=== PATIENT | male | born 1950 | race American Indian/Alaskan Native ===

== ENCOUNTER 2017-10-14 20:24 | Observation (INO) | payer MEDICARE, OTHER ==
[2017-10-14 20:28] VITALS: BMI 23.9
[2017-10-14] MEDS ORDERED: Sodium Chloride 0.9% 1,000 ML IV SCH (21:00)
--- NOTE | 2017-10-14 21:01 | ED PDOC ---
Arrival/HPI - General Chief Complaint: Abdominal Pain Time Seen by Provider: 10/14/17 20:25 Historian: Patient - History of Present Illness Narrative History of Present Illness (Text): 10/14/17 20:55 A 67 year old male, whose past medical history includes diabetes and hypertension, brought into the emergency department by EMS complaining of abdominal discomfort for the past few days. Patient notes associated nausea, non -bilious non-bloody vomiting and diarrhea. He reports using heroin today to relieve the pain. Patient notes multiple abdominal repairs but is unsure of the type of surgeries they were. He also notes taking medications but does not know the names. Patient denies any fever, chills, chest pain, shortness of breath or any other complaints. Time/Duration: Other (few days) Symptom Course: Unchanged Quality: Other Context: Home Past Medical History - Provider Review Nursing Documentation Reviewed: Yes - Psychiatric Hx Substance Use: Yes (heroin) Family/Social History - Physician Review Nursing Documentation Reviewed: Yes Family/Social History: No Known Family HX Smoking Status: Never Smoked Hx Alcohol Use: No Hx Substance Use: Yes (heroin) Allergies/Home Meds Allergies/Adverse Reactions: Allergies No Known Allergies Allergy (Verified 10/14/17 20:28) Home Medications: Home Meds Medication Instructions Recorded Confirmed Unobtainable 10/14/17 10/14/17 Review of Systems - Physician Review All systems were reviewed & negative as marked: Yes - Review of Systems Constitutional: absent: Fevers, Night Sweats Respiratory: absent: SOB Cardiovascular: absent: Chest Pain Gastrointestinal: Abdominal Pain, Diarrhea, Nausea, Vomiting Physical Exam Vital Signs Reviewed: Yes Vital Signs Temp Pulse Resp BP Pulse Ox 10/15/17 03:23 98.1 F 67 20 140/78 10/15/17 02:00 98.5 F 83 16 159/76 H 98 10/15/17 00:00 98.5 F 69 17 165/82 H 97 10/14/17 22:24 98.6 F 78 17 150/85 99 10/14/17 20:33 98.5 F 73 18 154/84 H 98 Temperature: Afebrile Blood Pressure: Hypertensive Pulse: Regular Respiratory Rate: Normal Appearance: Positive for: Well-Appearing, Non-Toxic, Comfortable Pain Distress: None Mental Status: Positive for: Alert and Oriented X 3 - Systems Exam Head: Present: Atraumatic, Normocephalic Pupils: Present: PERRL Extroacular Muscles: Present: EOMI Conjunctiva: Present: Normal Mouth: Present: Moist Mucous Membranes Neck: Present: Normal Range of Motion Respiratory/Chest: Present: Clear to Auscultation, Good Air Exchange. No: Respiratory Distress, Accessory Muscle Use Cardiovascular: Present: Regular Rate and Rhythm, Normal S1, S2. No: Murmurs Abdomen: Present: Tenderness (Diffuse tenderness to palpation), Normal Bowel Sounds. No: Distention, Peritoneal Signs, Rebound, Guarding Back: Present: Normal Inspection Upper Extremity: Present: Normal Inspection. No: Cyanosis, Edema Lower Extremity: Present: Normal Inspection. No: Edema Neurological: Present: GCS=15, CN II-XII Intact, Speech Normal Skin: Present: Warm, Dry, Normal Color. No: Rashes Psychiatric: Present: Alert, Oriented x 3, Normal Insight, Normal Concentration Medical Decision Making ED Course and Treatment: 10/14/17 20:55 Impression: A 67 year old male with abdominal pain, nausea, vomiting and diarrhea. Plan: -- Chest xray -- EKG -- Labs -- Urinalysis -- Pepcid, IV fluids and Zofran -- Reassess and disposition Progress Notes: 10/14/17 22:34 Chest xray: No acute process, as interpreted by me. Addendum created by Spring Lutz MD on 10/15/2017 1:32 AM Eastern Time ([place] & [place]) CRITICAL RESULT: The study was personally discussed on the telephone with [Filiberto Warren] on 10/15/2017 1:31 AM EST. The results were understood and acknowledged. Initial Report created on 10/15/2017 1:09 AM Eastern Time ([place] & [place]) CT Abdomen and Pelvis With Intravenous Contrast IMPRESSION: 1. There is right lower lobe infiltrate representing atelectasis or pneumonia. 2. Contracted gallbladder with multiple gallstones with gallbladder wall thickening and pericholecystic inflammatory change. These findings can represent acute on chronic cholecystitis. Correlation with clinical data is recommended to evaluate for acute cholecystitis. 3. There is thickening of the mid to distal gastric wall. Correlation with clinical data recommended to evaluate for gastritis/duodenitis versus underdistention. Dictated and Authenticated by: Spring Lutz MD 10/15/2017 1:09 AM Eastern Time ([place] & [place]) 10/15/17 01:45 Case discussed with attending money order clerk, who defers to hospitalist service. Case discussed with medical planner and with Dr. Sun, who accepts patient to hospitalist service. 10/15/17 01:59 Case discussed with manager residential, Dr. Suzette Wilkins. - Lab Interpretations Lab Results: 10/14/17 22:10 10/14/17 22:10 Lab Results 10/14/17 23:30: Urine Opiates Screen Positive H, Urine Methadone Screen Negative , Ur Barbiturates Screen Negative, Ur Phencyclidine Scrn Negative, Ur Amphetamines Screen Negative, U Benzodiazepines Scrn Negative, U Oth Cocaine Metabols Negative, U Cannabinoids Screen Negative 10/14/17 23:30: Urine Color Yellow, Urine Appearance Clear, Urine pH >=9.0, Ur Specific [place] 1.020, Urine Protein 100 H, Urine Glucose (UA) Negative, Urine Ketones Negative, Urine Blood Trace-intact H, Urine Nitrate Negative, Urine Bilirubin Negative, Urine Urobilinogen 2.0 H, Ur Leukocyte Esterase Negative, Urine RBC 2 - 5, Urine WBC 0 - 2, Ur Epithelial Cells 0 - 2 10/14/17 22:10: Sodium 141, Potassium 3.8, Chloride 105, Carbon Dioxide 24, Anion Gap 16, BUN 21, Creatinine 1.5, Est GFR ( Amer) 57, Est GFR (Non- Af Amer) 47, Random Glucose 174 H, Calcium 9.7, Total Bilirubin 1.0, AST 99 H, ALT 64 H, Alkaline Phosphatase 183 H, Total Protein 8.3, Albumin 3.9, Globulin 4.4, Albumin/Globulin Ratio 0.9 L, Lipase 43 10/14/17 22:10: WBC 7.8, RBC 3.67, Hgb 11.7 L, Hct 33.5 L, MCV 91.3, MCH 31.9, MCHC 34.9, RDW 12.6, Plt Count 163, MPV 12.1 H 10/14/17 21:47: POC Glucose (mg/dL) 147 H I have reviewed the lab results: Yes - RAD Interpretation Radiology Orders: 10/14/17 20:49 CHEST PORTABLE [RAD] Stat 10/14/17 21:07 ABD & PELVIS IV CONTRAST ONLY [CT] Stat - Medication Orders Current Medication Orders: Heparin Sodium (Porcine) (Heparin) 5,000 units SC Q8 SAYDA PRN Reason: Protocol Last Admin: 10/15/17 05:43 Dose: 5,000 units Subcutaneous Administrations Document 10/15/17 05:43 RS (Rec: 10/15/17 05:43 RS [id number]) Charges for Administration # of Subcutaneous Administrations 1 Hydralazine HCl (Apresoline) 10 mg IVP Q6 PRN PRN Reason: Systolic Blood Pressure Dextrose/Sodium Chloride (Dextrose 5%/0.45% Ns 1000 Ml) 1,000 mls @ 100 mls/hr IV .Q10H SAYDA Last Admin: 10/15/17 04:05 Dose: 100 mls/hr eMAR Start Stop Document 10/15/17 04:05 RS (Rec: 10/15/17 04:05 RS [id number]) Intravenous Solution Start Date 10/15/17 Start Time 04:05 End Date 10/15/17 Ceftriaxone Sodium (Rocephin 1 Gram Ivpb (D5w)) 1 gm in 100 mls @ 100 mls/hr IVPB DAILY SAYDA PRN Reason: Protocol Metronidazole (Flagyl) 500 mg in 100 mls @ 100 mls/hr IVPB Q8 SAYDA PRN Reason: Protocol Insulin Human Lispro (Humalog Med) 0 units SC ACHS SAYDA PRN Reason: Protocol Nicotine (Nicoderm Cq) 1 patch TD DAILY PRN PRN Reason: URGE TO SMOKE Ondansetron HCl (Zofran Inj) 4 mg IVP Q6H PRN PRN Reason: Nausea/Vomiting Discontinued Medications Famotidine (Pepcid) 20 mg IVP STAT STA Stop: 10/14/17 20:52 Last Admin: 10/14/17 21:49 Dose: 20 mg IVP Administration Document 10/14/17 21:49 AB (Rec: 10/14/17 21:49 AB [facility] [id number] Charges for Administration # of IVP Administrations 1 Sodium Chloride (Sodium Chloride 0.9%) 1,000 mls @ 100 mls/hr IV .Q10H SAYDA Last Admin: 10/14/17 21:48 Dose: 100 mls/hr eMAR Start Stop Document 10/14/17 21:48 AB (Rec: 10/14/17 21:49 AB [facility] [id number] Intravenous Solution Start Date 10/14/17 Start Time 21:49 Metronidazole (Flagyl) 500 mg in 100 mls @ 100 mls/hr IVPB STAT STA PRN Reason: Protocol Stop: 10/15/17 02:36 Last Admin: 10/15/17 02:36 Dose: 100 mls/hr eMAR Start Stop Document 10/15/17 02:36 AB (Rec: 10/15/17 02:37 AB [facility] [place] [id number] Intravenous Solution Start Date 10/15/17 Start Time 02:37 End Date 10/15/17 End time 03:37 Total Infusion Time 60 Ceftriaxone Sodium (Rocephin 1 Gram Ivpb) 1 gm in 100 mls @ 200 mls/hr IV ONCE STA PRN Reason: Protocol Stop: 10/15/17 02:05 Last Admin: 10/15/17 02:00 Dose: 200 mls/hr eMAR Start Stop Document 10/15/17 02:00 AB (Rec: 10/15/17 02:00 AB [facility] [place] [id number] Intravenous Solution Start Date 10/15/17 Start Time 02:00 End Date 10/15/17 End time 02:30 Total Infusion Time 30 Ketorolac Tromethamine (Toradol) 30 mg IVP ONCE ONE Stop: 10/14/17 21:08 Last Admin: 10/14/17 21:48 Dose: 30 mg [facility] Pain Assessment Document 10/14/17 21:48 AB (Rec: 10/14/17 21:48 [id number] Pain Reassessment Is this a pain reassessment? Yes Sleep Is patient sleeping during reassessment? No Presence of Pain Presence of Pain Yes Pain Scale Used Pain Scale Used Numeric Location Upper or Lower Upper Pain Location Body Site Abdomen Description Description Constant Intensity of Pain at present 6 Duration since yesterday Pain Behavior Irritability Aggravating Factors ADL's Alleviating Factors/Management Medication Techniques Alleviating Factors Medication IVP Administration Document 10/14/17 21:48 AB (Rec: 10/14/17 21:48 AB [facility] [id number] Charges for Administration # of IVP Administrations 1 Re-Assess: SOO Pain Assessment Document 10/14/17 22:48 AB (Rec: 10/15/17 01:46 AB [facility] [place] [id number] Pain Reassessment Is this a pain reassessment? Yes Sleep Is patient sleeping during reassessment? No Ondansetron HCl (Zofran Inj) 4 mg IVP ONCE ONE Stop: 10/14/17 20:52 Last Admin: 10/14/17 21:48 Dose: 4 mg IVP Administration Document 10/14/17 21:48 AB (Rec: 10/14/17 21:48 AB [facility] [id number] Charges for Administration # of IVP Administrations 1 Pneumococcal Polyvalent Vaccine (Pneumovax 23 Vaccine) 0.5 ml IM .ONCE ONE Stop: 10/15/17 03:48 - Scribe Statement The provider has reviewed the documentation as recorded by the Ava Heath Provider Scribe Attestation: All medical record entries made by the Scribe were at my direction and personally dictated by me. I have reviewed the chart and agree that the record accurately reflects my personal performance of the history, physical exam, medical decision making, and the department course for this patient. I have also personally directed, reviewed, and agree with the discharge instructions and disposition. Disposition/Present on Arrival - Present on Arrival Any Indicators Present on Arrival: No History of DVT/PE: No History of Uncontrolled Diabetes: No Urinary Catheter: No History of Decub. Ulcer: No History Surgical Site Infection Following: None - Disposition Have Diagnosis and Disposition been Completed?: Yes Diagnosis: Acute cholecystitis Disposition: HOSPITALIZED Disposition Time: 01:55 Condition: GOOD
[2017-10-14 22:23] LABS: HEMOGLOBIN 11.7 g/dL (14.0-18.0); MEAN CELL VOLUME 91.3 fl (80.0-105.0); MEAN CORPUSCULAR HEMOGLOBIN 31.9 pg (25.0-35.0); MEAN CORPUSCULAR HGB CONC 34.9 g/dl (31.0-37.0); MEAN PLATELET VOLUME 12.1 fl (7.0-11.0); RBC 3.67 10^6/uL (3.5-6.1); RED CELL DISTRIBUTION WIDTH 12.6 % (11.5-14.5); WHITE BLOOD COUNT 7.8 10^3/ul (4.5-11.0)
[2017-10-14 22:34] LABS: ALB/GLOB RATIO 0.9 (1.1-1.8); ALBUMIN 3.9 g/dL (3.0-4.8); CALCIUM 9.7 mg/dL (8.4-10.5)
[2017-10-14 23:55] LABS: PH,URINE >=9.0 (4.7-8.0); URINE BILIRUBIN NEGATIVE (NEGATIVE); URINE BLOOD TRACE-INTACT (NEGATIVE); URINE GLUCOSE (UA) NEGATIVE (NEGATIVE); URINE LEUKOCYTE ESTERASE NEGATIVE Leu/uL (NEGATIVE); URINE NITRATE NEGATIVE (NEGATIVE); URINE PROTEIN 100 mg/dL (<30 mg/dL)
[2017-10-15] LABS: URINE APPEARANCE CLEAR (CLEAR); URINE COLOR YELLOW (YELLOW)
[2017-10-15 00:03] LABS: BARBITURATES, UR NEGATIVE (NEGATIVE); BENZODIAZEPINES, UR NEGATIVE (NEGATIVE); PHENCYCLIDINE, UR NEGATIVE (NEGATIVE)
[2017-10-15 00:09] LABS: OPIATES, UR POSITIVE (NEGATIVE)
[2017-10-15 00:10] LABS: URINE EPITHELIAL CELLS 0 - 2 /hpf (0-5); URINE WBC 0 - 2 /hpf (0-6)
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
[2017-10-15] MEDS ORDERED: cefTRIAXone 1 gm 1 GM/100 ML BAG IV STA (01:36)
[2017-10-15] MEDS ORDERED: metroNIDAZOLE IV 500 mg/100 ml 500 MG/100 ML BAG IVPB STA (01:37)
--- NOTE | 2017-10-15 02:26 | CP.PCM.HP ---
<Andrew Avila - Last Filed: 10/15/17 02:56> History of Present Illness - History of Present Illness History of Present Illness: CC: Vomiting Subjective: HPI: Patient is a 67 year old male with past medical history of diabetes and hypertension who presents to the emergency department for evaluation and treatment of intermittent abdominal pain which began one month ago. The pain is dull in nature and is associated with meals. States the pain was initially generalized but then localizes to the lower quadrants. Patient notes associated nausea and nonbilious vomiting. Patient denies specific provoking events. Denies recent travel and sick contacts. Admits to sniffing heroin today to relieve the pain. Patient denies intractable headache, fever, chills, dizziness, blurry vision, ringing in the ears, chest pain, shortness of breath, diarrhea, constipation, and urinary symptoms. ROS: 12 point review of systems negative except as indicated in HPI PMHx: diabetes and hypertension PSHx: none Family Hx: father- liver cirrhosis Social Hx: denies ETOH use, 2 ppd tobacco use for 10 years, admits to illicit drug use- heroin (IV but now sniffs) and cocaine Medications: Please see medication reconciliation PMD: none Pharmacy: none Physical Examination: - Constitutional Appears: Non-toxic, No Acute Distress - Head Exam Head Exam: atraumatic, normocephalic - Eye Exam Eye Exam: Normal appearance, PERRL. absent: Scleral icterus - ENT Exam ENT Exam: Mucous Membranes Moist - Neck Exam Neck exam: Normal Inspection - Respiratory Exam Respiratory Exam: Normal Breathing Pattern - Cardiovascular Exam Cardiovascular Exam: +S1, +S2. absent: Gallop, JVD - GI/Abdominal Exam GI & Abdominal Exam: Normal Bowel Sounds, mildly tender to palpation in RUQ, soft, negative murphys signs absent: Distended, Guarding, Pulsatile Mass, Rebound, Rigid - Extremities Exam Extremities exam: Negative for: calf tenderness - Neurological Exam Neurological exam: Patient is awake, alert, responds to verbal stimuli, answers questions appropriately, follows commands, and moves extremities past midline - Psychiatric Exam Psychiatric exam: Normal Affect, Normal Mood - Skin Skin Exam: warm and dry Assessment and Plan: Patient is a 67 year old male with past medical history of diabetes and hypertension who presents to the emergency department via EMS for evaluation and treatment of intermittent abdominal pain which began one month ago. Abdominal Pain; N/V - abdominal pelvis CT reviewed and appreciated- Contracted gallbladder with multiple gallstones with gallbladder wall thickening and pericholecystic inflammatory change. There is thickening of the mid to distal gastric wall. - general surgery consulted- appreciate recommendations- abdominal US ordered - NPO - c/w d5 half normal @ 100 - zofran prn nausea - c/w ceftriaxone and metronidazole - lipase ordered and pending- rule out gallstone pancreatitis Elevated LFTs - avoid hepatotoxins - monitor closely via CMP - hepatits panel pending - HIV rapid screen pending KVNG - creatinine, BUN, and GFR reviewed and appreciated- monitor closely - likely pre-renal from dehydration - c/w d5 half normal @ 100 - consider nephrology consult pending patient's clinical course Anemia - Hgb reviewed and appreciated, normocytic in nature - monitor closely via CBC - FOBT ordered - consider iron, tibc, ferritin, peripheral smear pending patients clinical course Hx of Htn - hydralazine 5mg IV q6 prn SBP > 180, holding parameters- do not administer if HR is > 100 bpm Hx of Diabetes - fingersticks ACHS - insulin sliding scale- lispro medium - NPO Polysubstance abuse/Tobacco Abuse - nicotine patch offered - smoking cessation advised - patient education provided on dangers of tobacco abuse Prophylaxis - DVT ppx- subq heparin as per mere score - GI ppx- famotidine Patient case discussed with and plan approved by attending physician. 10/15/17 02:03 Present on Admission - Present on Admission Any Indicators Present on Admission: No Past Patient History - Past Social History Smoking Status: Never Smoked - PSYCHIATRIC Hx Substance Use: Yes (heroin) Meds Allergies/Adverse Reactions: Allergies Allergy/AdvReac Type Severity Reaction Status Date / Time No Known Allergies Allergy Verified 10/14/17 20:28 Results - Vital Signs Recent Vital Signs: Last Vital Signs Temp 98.5 F 10/15/17 00:00 Pulse 69 10/15/17 00:00 Resp 17 10/15/17 00:00 BP 165/82 H 10/15/17 00:00 Pulse Ox 97 10/15/17 00:00 - Labs Result Diagrams: 10/14/17 22:10 10/14/17 22:10 Labs: Laboratory Results - last 24 hr 10/14/17 10/14/17 10/14/17 21:47 22:10 22:10 WBC 7.8 RBC 3.67 Hgb 11.7 L Hct 33.5 L MCV 91.3 MCH 31.9 MCHC 34.9 RDW 12.6 Plt Count 163 MPV 12.1 H Sodium 141 Potassium 3.8 Chloride 105 Carbon Dioxide 24 Anion Gap 16 BUN 21 Creatinine 1.5 Est GFR ( Amer) 57 Est GFR (Non-Af Amer) 47 POC Glucose (mg/dL) 147 H Random Glucose 174 H Calcium 9.7 Total Bilirubin 1.0 AST 99 H ALT 64 H Alkaline Phosphatase 183 H Total Protein 8.3 Albumin 3.9 Globulin 4.4 Albumin/Globulin Ratio 0.9 L Lipase 43 Urine Color Urine Appearance Urine pH Ur Specific [place] Urine Protein Urine Glucose (UA) Urine Ketones Urine Blood Urine Nitrate Urine Bilirubin Urine Urobilinogen Ur Leukocyte Esterase Urine RBC Urine WBC Ur Epithelial Cells Urine Opiates Screen Urine Methadone Screen Ur Barbiturates Screen Ur Phencyclidine Scrn Ur Amphetamines Screen U Benzodiazepines Scrn U Oth Cocaine Metabols U Cannabinoids Screen 10/14/17 10/14/17 23:30 23:30 WBC RBC Hgb Hct MCV MCH MCHC RDW Plt Count MPV Sodium Potassium Chloride Carbon Dioxide Anion Gap BUN Creatinine Est GFR ( Amer) Est GFR (Non-Af Amer) POC Glucose (mg/dL) Random Glucose Calcium Total Bilirubin AST ALT Alkaline Phosphatase Total Protein Albumin Globulin Albumin/Globulin Ratio Lipase Urine Color Yellow Urine Appearance Clear Urine pH >=9.0 Ur Specific [place] 1.020 Urine Protein 100 H Urine Glucose (UA) Negative Urine Ketones Negative Urine Blood Trace-intact H Urine Nitrate Negative Urine Bilirubin Negative Urine Urobilinogen 2.0 H Ur Leukocyte Esterase Negative Urine RBC 2 - 5 Urine WBC 0 - 2 Ur Epithelial Cells 0 - 2 Urine Opiates Screen Positive H Urine Methadone Screen Negative Ur Barbiturates Screen Negative Ur Phencyclidine Scrn Negative Ur Amphetamines Screen Negative U Benzodiazepines Scrn Negative U Oth Cocaine Metabols Negative U Cannabinoids Screen Negative <Woo Sun MD - Last Filed: 10/24/17 13:37> Results - Vital Signs Recent Vital Signs: Last Vital Signs Temp 99.2 F 10/16/17 06:00 Pulse 74 10/16/17 06:00 Resp 20 10/16/17 06:00 BP 149/90 10/16/17 06:00 Pulse Ox 97 10/16/17 06:00 - Labs Result Diagrams: 10/16/17 05:30 10/16/17 05:30 Attending/Attestation - Attestation I have personally seen and examined this patient.: Yes I have fully participated in the care of the patient.: Yes I have reviewed all pertinent clinical information: Yes Notes (Text): -I agree with the above H&P completed by the resident physician.
[2017-10-15] MEDS ORDERED: Sodium Chloride 0.9% 1,000 ML IV SCH (03:30)
[2017-10-15] MEDS ORDERED: Dextrose 5%/0.45% NS 1,000 ML IV SCH (03:45)
[2017-10-15 03:46] VITALS: RESP 20
[2017-10-15] MEDS ORDERED: Influenza Vaccine 60 mcg/0.5 mL SYR (4YR UP) IM ONE (03:47)
[2017-10-15] MEDS ORDERED: Pneumococcal 23-Valent Vaccine IM ONE (03:47)
[2017-10-15 06:42] LABS: ALB/GLOB RATIO 0.8 (1.1-1.8); ALBUMIN 3.7 g/dL (3.0-4.8); CALCIUM 9.4 mg/dL (8.4-10.5)
[2017-10-15 06:56] LABS: BASO # 0.01 K/mm3 (0.0-2.0); BASO % 0.1 % (0.0-3.0); GRAN # 8.77 (1.4-6.5); GRAN % 86.9 % (50.0-68.0); HEMOGLOBIN 11.4 g/dL (14.0-18.0); LYMPH % 9.5 % (22.0-35.0); MEAN CELL VOLUME 92.7 fl (80.0-105.0); MEAN CORPUSCULAR HEMOGLOBIN 30.9 pg (25.0-35.0); MEAN CORPUSCULAR HGB CONC 33.3 g/dl (31.0-37.0); MEAN PLATELET VOLUME 12.4 fl (7.0-11.0); MONO # 0.4 (0.1-0.6); MONO % 3.5 % (1.0-6.0); RBC 3.69 10^6/uL (3.5-6.1); WHITE BLOOD COUNT 10.1 10^3/ul (4.5-11.0)
--- NOTE | 2017-10-15 08:32 | RAD ---
HISTORY: abdominal pain COMPARISON: No prior. FINDINGS: LUNGS: No active pulmonary disease. PLEURA: No significant pleural effusion identified, no pneumothorax apparent. CARDIOVASCULAR: Normal. OSSEOUS STRUCTURES: No significant abnormalities. VISUALIZED UPPER ABDOMEN: Normal. OTHER FINDINGS: None. IMPRESSION: No active disease.
[2017-10-15] MEDS: Insulin Lispro (humaLOG) MEDIUM Coverage SC SCH ×4 (08:39→21:52)
[2017-10-15] MEDS: metroNIDAZOLE IV 500 mg/100 ml 500 MG/100 ML BAG IVPB SCH ×2 (09:39→21:56)
[2017-10-15] MEDS ORDERED: Alum-Mag Hydrox-Simethicone Susp (30 mL) PO ONE (11:06)
--- NOTE | 2017-10-15 11:37 | CP.PCM.CON ---
History of Present Illness - History of Present Illness History of Present Illness: General Surgery Consult Note for Dr. Masters CC: diffuse Abd Pain HPI: The patient is a 67yo AA M that presents with worsening abdominal pain localized to the midline that has been going on for 3 week and has progressively gotten worse. The patient reported that the pain is diffuse across the abdomen, radiates to the back bilaterally and the b/l lower quadrants. The pt reports that the pain gets worse prior to eating meals and it is associated with nausea and non-bloody, and non-bilious vomiting. The pt also complains that the pain worsened two weeks ago after doing "dope". In addition, there is of diarrhea that has been occurring in the past week, reports blood with every bowel movement since arriving to the hospital. The pt did not take any medications for the pain, but has a history of opiate abuse, and insuffulate 1-2 bags of heroin. The patient currently denies chest pain, dyspnea , f/c, headache, back pain, edema, leg pain, constipation. PMH:DM, HTN PSH: denies Meds: insulin dose and brand unknown Allergies: NKDA Fam: reviewed and non-contributory Social: .25ppd x50 years, denies etoh, 1-2bags of heroin daily. Review of Systems - Review of Systems All systems: reviewed and no additional remarkable complaints except - Constitutional Constitutional: As Per HPI. absent: Chills, Fever, Weight Gain, Weight Loss - Cardiovascular Cardiovascular: absent: Chest Pain, Chest Pain at Rest, Dyspnea, Edema - Respiratory Respiratory: absent: Cough, Dyspnea on Exertion, Wheezing, Pain on Inspiration - Gastrointestinal Gastrointestinal: Abdominal Pain, Change in Bowel Habits, Change in Stool Character, Diarrhea, Loose Stools. absent: Bloating, Constipation, Cramping - Genitourinary Genitourinary: Flank Pain. absent: Difficulty Urinating, Dysuria - Musculoskeletal Musculoskeletal: Back Pain Past Patient History - Past Social History Smoking Status: Never Smoked - CARDIAC Hx Hypertension: Yes - ENDOCRINE/METABOLIC Hx Diabetes Mellitus Type 2: Yes - MUSCULOSKELETAL/RHEUMATOLOGICAL Hx Falls: No Hx Unsteady Gait: Yes (cane) - PSYCHIATRIC Hx Substance Use: Yes (heroin) - SURGICAL HISTORY Hx Surgeries: Yes (MULTIPLE GI) Meds Allergies/Adverse Reactions: Allergies Allergy/AdvReac Type Severity Reaction Status Date / Time No Known Allergies Allergy Verified 10/14/17 20:28 - Medications Medications: Current Medications Heparin Sodium (Porcine) (Heparin) 5,000 units SC Q8 SAYDA PRN Reason: Protocol Last Admin: 10/15/17 05:43 Dose: 5,000 units Hydralazine HCl (Apresoline) 10 mg IVP Q6 PRN PRN Reason: Systolic Blood Pressure Dextrose/Sodium Chloride (Dextrose 5%/0.45% Ns 1000 Ml) 1,000 mls @ 100 mls/hr IV .Q10H [facility] Last Admin: 10/15/17 04:05 Dose: 100 mls/hr Ceftriaxone Sodium (Rocephin 1 Gram Ivpb (D5w)) 1 gm in 100 mls @ 100 mls/hr IVPB DAILY SAYDA PRN Reason: Protocol Metronidazole (Flagyl) 500 mg in 100 mls @ 100 mls/hr IVPB Q8 SAYDA PRN Reason: Protocol Last Admin: 10/15/17 09:39 Dose: 100 mls/hr Insulin Human Lispro (Humalog Med) 0 units SC ACHS [facility] PRN Reason: Protocol Last Admin: 10/15/17 08:39 Dose: Not Given Nicotine (Nicoderm Cq) 1 patch TD DAILY PRN PRN Reason: URGE TO SMOKE Ondansetron HCl (Zofran Inj) 4 mg IVP Q6H PRN PRN Reason: Nausea/Vomiting Physical Exam - Constitutional Appears: Well, Non-toxic, No Acute Distress - Head Exam Head Exam: ATRAUMATIC, NORMAL INSPECTION - Eye Exam Eye Exam: EOMI, Normal appearance, PERRL - ENT Exam ENT Exam: Mucous Membranes Moist, Normal Exam - Respiratory Exam Respiratory Exam: Clear to Auscultation Bilateral, NORMAL BREATHING PATTERN. absent: Accessory Muscle Use, Rales, Rhonchi, Wheezes, Respiratory Distress - Cardiovascular Exam Cardiovascular Exam: +S1, +S2 - GI/Abdominal Exam GI & Abdominal Exam: Normal Bowel Sounds, Soft, Tenderness. absent: Distended, Firm, Guarding, Mass, Pulsatile Mass, Rigid Additional comments: tenderness localzied midline closer to the pubis. no RUQ tenderness Palpable liver below the costal margin - Neurological Exam Neurological exam: Alert, Oriented x3 - Skin Skin Exam: Dry, Normal Color, Warm Results - Vital Signs Recent Vital Signs: Last Vital Signs Temp 98.5 F 10/15/17 06:00 Pulse 70 10/15/17 06:00 Resp 20 10/15/17 06:00 BP 161/86 H 10/15/17 06:00 Pulse Ox 95 10/15/17 06:00 - Labs Result Diagrams: 10/15/17 05:40 10/15/17 05:40 Labs: Laboratory Results - last 24 hr 10/15/17 10/15/17 10/15/17 05:40 05:40 08:37 WBC 10.1 D RBC 3.69 Hgb 11.4 L Hct 34.2 L MCV 92.7 MCH 30.9 MCHC 33.3 RDW 13.0 Plt Count 135 MPV 12.4 H Gran % 86.9 H Lymph % (Auto) 9.5 L [place] % (Auto) 3.5 Eos % (Auto) 0.0 L Baso % (Auto) 0.1 Gran # 8.77 H Lymph # 1.0 L [place] # 0.4 Eos # 0.0 Baso # 0.01 Sodium 140 Potassium 4.6 Chloride 106 Carbon Dioxide 28 Anion Gap 11 BUN 19 Creatinine 1.6 H Est GFR ( Amer) 53 Est GFR (Non-Af Amer) 43 POC Glucose (mg/dL) 237 H Random Glucose 236 H Calcium 9.4 Total Bilirubin 0.8 AST 67 H D ALT 50 Alkaline Phosphatase 168 H Total Protein 8.5 H Albumin 3.7 Globulin 4.8 Albumin/Globulin Ratio 0.8 L Triglycerides 48 Cholesterol 107 L LDL Cholesterol Direct 31 HDL Cholesterol 47 Lipase 24 Assessment & Plan - Assessment and Plan (Free Text) Assessment: 67yo M with abdominal pain Plan: Abdominal pain, possible acute on chronic Cholecystitis - advance diet to clears, advance diet as tolerated - GI consult recommended for Cirrhosis - pain control and anti-emetic PRN - no surgical intervention at this time - will follow - discussed w/ Dr. Masters Surgical attending Anival Cabrera, PGY-1 - Date & Time Date: 10/15/17 Time: 11:39
--- NOTE | 2017-10-15 12:39 | US ---
HISTORY: r/o cholecystitis COMPARISON: CT abdomen and pelvis 10/14/2017 TECHNIQUE: Sonographic evaluation of the abdomen. FINDINGS: LIVER: Measures 14.0 x 12.8 cm. Increased echogenicity of the liver parenchyma. Nodular contour. No mass. No intrahepatic bile duct dilatation. GALLBLADDER: Gallstones within a contracted gallbladder. Evaluation for any gallbladder wall thickening limited given the contracted state. No gross pericholecystic fluid. No positive ultrasound Pollock sign COMMON BILE DUCT: Measures 3.9 mm. No stones. No dilatation. PANCREAS: Grossly unremarkable. RIGHT KIDNEY: Measures 9.1 x 3.8 x 4.8cm. Normal echogenicity. No calculus, mass, or hydronephrosis. LEFT KIDNEY: Measures 9.2 x 5.3 x 5.0cm. Normal echogenicity. No calculus, mass, or hydronephrosis. SPLEEN: Normal in size and contour. No mass. AORTA: No aneurysmal dilatation. IVC: Unremarkable. OTHER FINDINGS: None. IMPRESSION: Borderline hepatomegaly. Diffuse increased echogenicity consistent with fatty and/or fibrotic infiltration. Nodular contour consistent with cirrhosis. No dilated intra or extra hepatic bile ducts Gallstones within a contracted gallbladder. No secondary signs to suggest acute cholecystitis appreciated. Continued clinical follow-up recommended.
[2017-10-15 13:13] LABS: HEPATITIS B SURFACE AG NEGATIVE (NEGATIVE)
[2017-10-15 13:19] LABS: HEPATITIS A IGM NEGATIVE (NEGATIVE); HEPATITIS B CORE AB Negative (NEGATIVE)
[2017-10-15 14:41] LABS: HEPATITIS C ANTIBODY REACTIVE (NEGATIVE)
[2017-10-15] MEDS ORDERED: Gadodiamide 287 MG/ML VIAL (15ML) IV ONE (15:14)
[2017-10-15] MEDS ORDERED: Alum-Mag Hydrox-Simethicone Susp (30 mL) PO PRN (17:23)
--- NOTE | 2017-10-15 23:46 | CP.PCM.CON ---
History of Present Illness - History of Present Illness History of Present Illness: Infectious Disease Consultation: October 15, 2017 67 yo male with intermittent abdominal pains with nausea and nonbilious vomiting. Patient admits to sniffing cocaine to deal with the pain. Patient has known history of HIV and Hep C seen in the [facility]. The patient has been positive for both since 2012 to my best knowledge (last time I saw the patient). He also has a diabetes and hypertension history as well. Unclear to me whether the patient is compliant with therapy but he does visit the [facility] regularly. He states that his numbers are "good". Unclear if he had received treatment for Hep C at [facility]. PMHx: DM, HTN, HIV, Hepatitis C, drug/substance abuse PSHx: none to my knowledge Allergies: NKDA Social Hx: Denies EtOH Heavy tobacco use history for at least 33 years of at least 1ppd Heroin abuse including IV use in the past but currently sniffing and cocaine use. Active Medications Al Hydrox/Mg Hydrox/Simethicone (Maalox Plus 30 Ml) 30 ml PO Q8H PRN PRN Reason: Indigestion / Heartburn Heparin Sodium (Porcine) (Heparin) 5,000 units SC Q8 SAYDA PRN Reason: Protocol Last Admin: 10/15/17 21:57 Dose: 5,000 units Hydralazine HCl (Apresoline) 10 mg IVP Q6 PRN PRN Reason: Systolic Blood Pressure Ceftriaxone Sodium (Rocephin 1 Gram Ivpb (D5w)) 1 gm in 100 mls @ 100 mls/hr IVPB DAILY SAYDA PRN Reason: Protocol Metronidazole (Flagyl) 500 mg in 100 mls @ 100 mls/hr IVPB Q8 SAYDA PRN Reason: Protocol Last Admin: 10/15/17 21:56 Dose: 100 mls/hr Insulin Human Lispro (Humalog Med) 0 units SC ACHS SAYDA PRN Reason: Protocol Last Admin: 10/15/17 21:52 Dose: Not Given Nicotine (Nicoderm Cq) 1 patch TD DAILY PRN PRN Reason: URGE TO SMOKE Ondansetron HCl (Zofran Inj) 4 mg IVP Q6H PRN PRN Reason: Nausea/Vomiting Last Admin: 10/15/17 12:12 Dose: 4 mg Pantoprazole Sodium (Protonix Ec Tab) 40 mg PO 0600 SAYDA Pantoprazole Sodium (Protonix Ec Tab) 40 mg PO ONCE ONE Stop: 10/16/17 13:13 Family Hx: liver cirrhosis - father ROS: Abdominal pain. Denies fevers, chills, nausea, vomiting, diarrhea, headaches, dizziness, chest pain, melena, hematuria, hematemesis, hematochezia, depression, anxiety Past Patient History - Past Social History Smoking Status: Never Smoked - CARDIAC Hx Hypertension: Yes - ENDOCRINE/METABOLIC Hx Diabetes Mellitus Type 2: Yes - MUSCULOSKELETAL/RHEUMATOLOGICAL Hx Falls: No Hx Unsteady Gait: Yes (cane) - PSYCHIATRIC Hx Substance Use: Yes (heroin) - SURGICAL HISTORY Hx Surgeries: Yes (MULTIPLE GI) Meds Allergies/Adverse Reactions: Allergies Allergy/AdvReac Type Severity Reaction Status Date / Time No Known Allergies Allergy Verified 10/14/17 20:28 - Medications Medications: Current Medications Al Hydrox/Mg Hydrox/Simethicone (Maalox Plus 30 Ml) 30 ml PO Q8H PRN PRN Reason: Indigestion / Heartburn Heparin Sodium (Porcine) (Heparin) 5,000 units SC Q8 SAYDA PRN Reason: Protocol Last Admin: 10/15/17 21:57 Dose: 5,000 units Hydralazine HCl (Apresoline) 10 mg IVP Q6 PRN PRN Reason: Systolic Blood Pressure Ceftriaxone Sodium (Rocephin 1 Gram Ivpb (D5w)) 1 gm in 100 mls @ 100 mls/hr IVPB DAILY SAYDA PRN Reason: Protocol Metronidazole (Flagyl) 500 mg in 100 mls @ 100 mls/hr IVPB Q8 SAYDA PRN Reason: Protocol Last Admin: 10/15/17 21:56 Dose: 100 mls/hr Insulin Human Lispro (Humalog Med) 0 units SC ACHS SAYDA PRN Reason: Protocol Last Admin: 10/15/17 21:52 Dose: Not Given Nicotine (Nicoderm Cq) 1 patch TD DAILY PRN PRN Reason: URGE TO SMOKE Ondansetron HCl (Zofran Inj) 4 mg IVP Q6H PRN PRN Reason: Nausea/Vomiting Last Admin: 10/15/17 12:12 Dose: 4 mg Pantoprazole Sodium (Protonix Ec Tab) 40 mg PO 0600 SAYDA Pantoprazole Sodium (Protonix Ec Tab) 40 mg PO ONCE ONE Stop: 10/16/17 13:13 Physical Exam - Constitutional Appears: Non-toxic, No Acute Distress, Chronically Ill - Head Exam Head Exam: ATRAUMATIC, NORMOCEPHALIC - Eye Exam Eye Exam: EOMI, PERRL Pupil Exam: NORMAL ACCOMODATION, PERRL - ENT Exam ENT Exam: Mucous Membranes Moist, Normal External Ear Exam, TM's Normal Bilaterally - Neck Exam Neck exam: Positive for: Full Rom, Normal Inspection - Respiratory Exam Respiratory Exam: Clear to Auscultation Bilateral, NORMAL BREATHING PATTERN. absent: Rales, Rhonchi, Wheezes - Cardiovascular Exam Cardiovascular Exam: REGULAR RHYTHM, RRR, +S1, +S2 - GI/Abdominal Exam GI & Abdominal Exam: Normal Bowel Sounds, Soft, Tenderness. absent: Distended Additional comments: RUQ mild tenderness - Extremities Exam Extremities exam: Positive for: full ROM, normal inspection - Neurological Exam Neurological exam: Alert, CN II-XII Intact, Oriented x3 - Psychiatric Exam Psychiatric exam: Normal Affect, Normal Mood - Skin Skin Exam: Intact, Normal Color Results - Vital Signs Recent Vital Signs: Last Vital Signs Temp 98.7 F 10/15/17 16:00 Pulse 70 10/15/17 16:00 Resp 20 10/15/17 16:00 BP 154/86 H 10/15/17 16:00 Pulse Ox 95 10/15/17 16:00 - Labs Result Diagrams: 10/15/17 05:40 10/15/17 05:40 Labs: Laboratory Results - last 24 hr 10/15/17 10/15/17 10/15/17 05:40 05:40 05:40 WBC RBC Hgb Hct MCV MCH MCHC RDW Plt Count MPV Gran % Lymph % (Auto) [place] % (Auto) Eos % (Auto) Baso % (Auto) Gran # Lymph # [place] # Eos # Baso # Sodium 140 Potassium 4.6 Chloride 106 Carbon Dioxide 28 Anion Gap 11 BUN 19 Creatinine 1.6 H Est GFR ( Amer) 53 Est GFR (Non-Af Amer) 43 POC Glucose (mg/dL) Random Glucose 236 H Hemoglobin A1c 8.3 H Calcium 9.4 Total Bilirubin 0.8 AST 67 H D ALT 50 Alkaline Phosphatase 168 H Total Protein 8.5 H Albumin 3.7 Globulin 4.8 Albumin/Globulin Ratio 0.8 L Triglycerides 48 Cholesterol 107 L LDL Cholesterol Direct 31 HDL Cholesterol 47 Lipase 24 Stool Occult Blood Hepatitis A IgM Ab Negative Hep Bs Antigen Negative Hep B Core IgM Ab Negative Hepatitis C Antibody Reactive HIV 1&2 Antibody Screen 10/15/17 10/15/17 10/15/17 05:40 06:30 08:37 WBC 10.1 D RBC 3.69 Hgb 11.4 L Hct 34.2 L MCV 92.7 MCH 30.9 MCHC 33.3 RDW 13.0 Plt Count 135 MPV 12.4 H Gran % 86.9 H Lymph % (Auto) 9.5 L [place] % (Auto) 3.5 Eos % (Auto) 0.0 L Baso % (Auto) 0.1 Gran # 8.77 H Lymph # 1.0 L [place] # 0.4 Eos # 0.0 Baso # 0.01 Sodium Potassium Chloride Carbon Dioxide Anion Gap BUN Creatinine Est GFR ( Amer) Est GFR (Non-Af Amer) POC Glucose (mg/dL) 237 H Random Glucose Hemoglobin A1c Calcium Total Bilirubin AST ALT Alkaline Phosphatase Total Protein Albumin Globulin Albumin/Globulin Ratio Triglycerides Cholesterol LDL Cholesterol Direct HDL Cholesterol Lipase Stool Occult Blood Hepatitis A IgM Ab Hep Bs Antigen Hep B Core IgM Ab Hepatitis C Antibody HIV 1&2 Antibody Screen Reactive 10/15/17 10/15/17 10/15/17 11:26 12:00 16:37 WBC RBC Hgb Hct MCV MCH MCHC RDW Plt Count MPV Gran % Lymph % (Auto) [place] % (Auto) Eos % (Auto) Baso % (Auto) Gran # Lymph # [place] # Eos # Baso # Sodium Potassium Chloride Carbon Dioxide Anion Gap BUN Creatinine Est GFR ( Amer) Est GFR (Non-Af Amer) POC Glucose (mg/dL) 232 H 90 Random Glucose Hemoglobin A1c Calcium Total Bilirubin AST ALT Alkaline Phosphatase Total Protein Albumin Globulin Albumin/Globulin Ratio Triglycerides Cholesterol LDL Cholesterol Direct HDL Cholesterol Lipase Stool Occult Blood Negative Hepatitis A IgM Ab Hep Bs Antigen Hep B Core IgM Ab Hepatitis C Antibody HIV 1&2 Antibody Screen 10/15/17 21:46 WBC RBC Hgb Hct MCV MCH MCHC RDW Plt Count MPV Gran % Lymph % (Auto) [place] % (Auto) Eos % (Auto) Baso % (Auto) Gran # Lymph # [place] # Eos # Baso # Sodium Potassium Chloride Carbon Dioxide Anion Gap BUN Creatinine Est GFR ( Amer) Est GFR (Non-Af Amer) POC Glucose (mg/dL) 169 H Random Glucose Hemoglobin A1c Calcium Total Bilirubin AST ALT Alkaline Phosphatase Total Protein Albumin Globulin Albumin/Globulin Ratio Triglycerides Cholesterol LDL Cholesterol Direct HDL Cholesterol Lipase Stool Occult Blood Hepatitis A IgM Ab Hep Bs Antigen Hep B Core IgM Ab Hepatitis C Antibody HIV 1&2 Antibody Screen Assessment & Plan - Assessment and Plan (Free Text) Assessment: 67 yo AA male with abdominal pain found on CT scan to have multiple gallstones and a contracted gallbladder. NPO for potential surgery. Patient with known history of HIV and Hep C. No need to rescreen for HIV or Hepatitis C. Check CD4, HIV viral load, and Hep C viral load. Contact [facility] in [place] for HAART regimen and treatment status on Hepatitis C. Unclear if patient is compliant but appears to be given the frequency of his visits to [facility]. On Ceftriaxone and Flagyl... could utilize Zosyn or Unasyn as single drug coverage. Await surgery evaluation regarding need for surgery. Thank you for allowing me to participate in the care of the patient, we will follow with you.
--- NOTE | 2017-10-16 00:15 | CARD ---
APPROVED REPORT EKG Measurement Heart [id number] <Conclusion> Sinus rhythm Left axis deviation Nonspecific intraventricular block Nonspecific T wave abnormality Abnormal ECG
[2017-10-16] MEDS: metroNIDAZOLE IV 500 mg/100 ml 500 MG/100 ML BAG IVPB SCH (05:29)
[2017-10-16] MEDS ORDERED: Pantoprazole 40 mg EC Tab PO SCH (06:00)
[2017-10-16] MEDS ORDERED: cefTRIAXone 1 gm 1 GM/100 ML BAG IVPB SCH (06:00)
[2017-10-16 06:25] LABS: BASO # 0.02 K/mm3 (0.0-2.0); BASO % 0.2 % (0.0-3.0); EOS % 0.1 % (1.5-5.0); GRAN # 8.75 (1.4-6.5); GRAN % 79.1 % (50.0-68.0); LYMPH # 1.5 (1.2-3.4); LYMPH % 13.5 % (22.0-35.0); MEAN CELL VOLUME 91.2 fl (80.0-105.0); MEAN CORPUSCULAR HEMOGLOBIN 31.1 pg (25.0-35.0); MEAN CORPUSCULAR HGB CONC 34.1 g/dl (31.0-37.0); MONO # 0.8 (0.1-0.6); MONO % 7.1 % (1.0-6.0); RBC 3.86 10^6/uL (3.5-6.1); RED CELL DISTRIBUTION WIDTH 13.1 % (11.5-14.5); WHITE BLOOD COUNT 11.1 10^3/ul (4.5-11.0)
[2017-10-16 06:50] LABS: ALB/GLOB RATIO 0.7 (1.1-1.8); ALBUMIN 3.5 g/dL (3.0-4.8); CALCIUM 9.3 mg/dL (8.4-10.5); MAGNESIUM 1.8 mg/dL (1.7-2.2)
[2017-10-16] MEDS: Insulin Lispro (humaLOG) MEDIUM Coverage SC SCH ×2 (08:49→12:53)
[2017-10-16 09:57] VITALS: BP 149/90; PULSE 74; TEMP 99.2; O2SAT 97
--- NOTE | 2017-10-16 11:33 | CP.PCM.PN ---
Subjective - Date & Time of Evaluation Date of Evaluation: 10/16/17 Time of Evaluation: 11:30 - Subjective Subjective: PGY1 Note for Dr. Masters HPI: Patient seen and examined at bedside. Belly pain is improving. No longer nauseated. Tolerating diet. Passing gas and having BM. Ambulating independently. Objective - Vital Signs/Intake and Output Vital Signs (last 24 hours): Temp Pulse Resp BP Pulse Ox 99.2 F 74 20 149/90 97 10/16/17 06:00 10/16/17 06:00 10/16/17 06:00 10/16/17 06:00 10/16/17 06:00 Intake and Output: 10/16/17 10/16/17 06:59 18:59 Intake Total 720 Output Total 800 Balance -80 - Medications Medications: Current Medications Al Hydrox/Mg Hydrox/Simethicone (Maalox Plus 30 Ml) 30 ml PO Q8H PRN PRN Reason: Indigestion / Heartburn Heparin Sodium (Porcine) (Heparin) 5,000 units SC Q8 SAYDA PRN Reason: Protocol Last Admin: 10/16/17 05:29 Dose: 5,000 units Hydralazine HCl (Apresoline) 10 mg IVP Q6 PRN PRN Reason: Systolic Blood Pressure Ceftriaxone Sodium (Rocephin 1 Gram Ivpb (D5w)) 1 gm in 100 mls @ 100 mls/hr IVPB DAILY SAYDA PRN Reason: Protocol Last Admin: 10/16/17 06:40 Dose: 100 mls/hr Metronidazole (Flagyl) 500 mg in 100 mls @ 100 mls/hr IVPB Q8 SAYDA PRN Reason: Protocol Last Admin: 10/16/17 05:29 Dose: 100 mls/hr Insulin Human Lispro (Humalog Med) 0 units SC ACHS SAYDA PRN Reason: Protocol Last Admin: 10/16/17 08:49 Dose: 1 units Nicotine (Nicoderm Cq) 1 patch TD DAILY PRN PRN Reason: URGE TO SMOKE Ondansetron HCl (Zofran Inj) 4 mg IVP Q6H PRN PRN Reason: Nausea/Vomiting Last Admin: 10/15/17 12:12 Dose: 4 mg Pantoprazole Sodium (Protonix Ec Tab) 40 mg PO 0600 [facility] Last Admin: 10/16/17 05:27 Dose: 40 mg Pantoprazole Sodium (Protonix Ec Tab) 40 mg PO ONCE ONE Stop: 10/16/17 13:13 - Labs Labs: 10/16/17 05:30 10/16/17 05:30 - Constitutional Appears: Non-toxic - Head Exam Head Exam: ATRAUMATIC, NORMAL INSPECTION, NORMOCEPHALIC - Eye Exam Eye Exam: EOMI Pupil Exam: NORMAL ACCOMODATION - ENT Exam ENT Exam: Mucous Membranes Moist - Respiratory Exam Respiratory Exam: Clear to Ausculation Bilateral - Cardiovascular Exam Cardiovascular Exam: REGULAR RHYTHM - GI/Abdominal Exam GI & Abdominal Exam: Soft, Normal Bowel Sounds. absent: Distended, Tenderness - Extremities Exam Extremities Exam: absent: Joint Swelling, Tenderness - Neurological Exam Neurological Exam: Alert, Awake, Oriented x3 - Psychiatric Exam Psychiatric exam: Normal Affect, Normal Mood - Skin Skin Exam: Dry, Intact, Normal Color, Warm Assessment and Plan - Assessment and Plan (Free Text) Assessment: 67M with Gallstones Plan: * No surgical intervention needed at this time * Continue medical management * Signing off, Please reconsult if necessary [place]adier PGY1
[2017-10-16] MEDS ORDERED: Pantoprazole 40 mg EC Tab PO ONE (13:12)
--- NOTE | 2017-10-16 14:37 | CP.PCM.DIS ---
<Herrera Quispe - Last Filed: 10/16/17 14:23> Provider - Provider Date of Admission: 10/15/17 01:54 Attending physician: Maximilian Mena MD Primary care physician: NO PRIMARY CARE PROVIDER Consults: General surgery Infectious disease Time Spent in preparation of Discharge (in minutes): 45 Diagnosis - Discharge Diagnosis (1) Chronic cholecystitis Status: Chronic (2) Peptic ulcer disease Status: Acute (3) HIV (human immunodeficiency virus infection) Status: Chronic (4) Hepatitis C Status: Chronic (5) Diabetes Status: Chronic Hospital Course - Lab Results Lab Results: Micro Results 10/15/17 02:00 Blood Blood Culture - Preliminary NO GROWTH AFTER 24 HOURS Most Recent Lab Values WBC 11.1 10^3/ul (4.5-11.0) H 10/16/17 05:30 RBC 3.86 10^6/uL (3.5-6.1) 10/16/17 05:30 Hgb 12.0 g/dL (14.0-18.0) L 10/16/17 05:30 Hct 35.2 % (42.0-52.0) L 10/16/17 05:30 MCV 91.2 fl (80.0-105.0) 10/16/17 05:30 MCH 31.1 pg (25.0-35.0) 10/16/17 05:30 MCHC 34.1 g/dl (31.0-37.0) 10/16/17 05:30 RDW 13.1 % (11.5-14.5) 10/16/17 05:30 Plt Count 141 10^3/uL (120.0-450.0) 10/16/17 05:30 MPV 12.0 fl (7.0-11.0) H 10/16/17 05:30 Gran % 79.1 % (50.0-68.0) H 10/16/17 05:30 Lymph % (Auto) 13.5 % (22.0-35.0) L 10/16/17 05:30 [place] % (Auto) 7.1 % (1.0-6.0) H 10/16/17 05:30 Eos % (Auto) 0.1 % (1.5-5.0) L 10/16/17 05:30 Baso % (Auto) 0.2 % (0.0-3.0) 10/16/17 05:30 Gran # 8.75 (1.4-6.5) H 10/16/17 05:30 Lymph # 1.5 (1.2-3.4) 10/16/17 05:30 [place] # 0.8 (0.1-0.6) H 10/16/17 05:30 Eos # 0.0 (0.0-0.7) 10/16/17 05:30 Baso # 0.02 K/mm3 (0.0-2.0) 10/16/17 05:30 Sodium 142 mmol/L (132-148) 10/16/17 05:30 Potassium 4.1 mmol/L (3.6-5.0) 10/16/17 05:30 Chloride 108 mmol/L (98-107) H 10/16/17 05:30 Carbon Dioxide 24 mmol/L (21-33) 10/16/17 05:30 Anion Gap 13 (10-20) 10/16/17 05:30 BUN 19 mg/dL (7-21) 10/16/17 05:30 Creatinine 1.5 mg/dl (0.8-1.5) 10/16/17 05:30 Est GFR ( Amer) 57 10/16/17 05:30 Est GFR (Non-Af Amer) 47 10/16/17 05:30 POC Glucose (mg/dL) 208 mg/dL (65-110) H 10/16/17 11:58 Random Glucose 176 mg/dL (70-110) H 10/16/17 05:30 Hemoglobin A1c 8.3 % (4.2-6.5) H 10/15/17 05:40 Calcium 9.3 mg/dL (8.4-10.5) 10/16/17 05:30 Phosphorus 3.5 mg/dL (2.5-4.5) 10/16/17 05:30 Magnesium 1.8 mg/dL (1.7-2.2) 10/16/17 05:30 Total Bilirubin 0.7 mg/dL (0.2-1.3) 10/16/17 05:30 AST 53 U/L (17-59) 10/16/17 05:30 ALT 40 U/L (7-56) 10/16/17 05:30 Alkaline Phosphatase 155 U/L (38-126) H 10/16/17 05:30 Total Protein 8.3 g/dL (5.8-8.3) 10/16/17 05:30 Albumin 3.5 g/dL (3.0-4.8) 10/16/17 05:30 Globulin 4.8 gm/dL 10/16/17 05:30 Albumin/Globulin Ratio 0.7 (1.1-1.8) L 10/16/17 05:30 Triglycerides 48 mg/dL (35-160) 10/15/17 05:40 Cholesterol 107 mg/dL (130-200) L 10/15/17 05:40 LDL Cholesterol Direct 31 mg/dL (0-129) 10/15/17 05:40 HDL Cholesterol 47 mg/dL (29-60) 10/15/17 05:40 Lipase 24 U/L (23-300) 10/15/17 05:40 Urine Color Yellow (YELLOW) 10/14/17 23:30 Urine Appearance Clear (CLEAR) 10/14/17 23:30 Urine pH >=9.0 (4.7-8.0) 10/14/17 23:30 Ur Specific [place] 1.020 (1.005-1.035) 10/14/17 23:30 Urine Protein 100 mg/dL (<30 mg/dL) H 10/14/17 23:30 Urine Glucose (UA) Negative mg/dL (NEGATIVE) 10/14/17 23:30 Urine Ketones Negative mg/dL (NEGATIVE) 10/14/17 23:30 Urine Blood Trace-intact (NEGATIVE) H 10/14/17 23:30 Urine Nitrate Negative (NEGATIVE) 10/14/17 23:30 Urine Bilirubin Negative (NEGATIVE) 10/14/17 23:30 Urine Urobilinogen 2.0 E.U./dL (<1 E.U./dL) H 10/14/17 23:30 Ur Leukocyte Esterase Negative Yudi/uL (NEGATIVE) 10/14/17 23:30 Urine RBC 2 - 5 /hpf (0-2) 10/14/17 23:30 Urine WBC 0 - 2 /hpf (0-6) 10/14/17 23:30 Ur Epithelial Cells 0 - 2 /hpf (0-5) 10/14/17 23:30 Stool Occult Blood Negative (NEGATIVE) 10/15/17 12:00 Urine Opiates Screen Positive (NEGATIVE) H 10/14/17 23:30 Urine Methadone Screen Negative (NEGATIVE) 10/14/17 23:30 Ur Barbiturates Screen Negative (NEGATIVE) 10/14/17 23:30 Ur Phencyclidine Scrn Negative (NEGATIVE) 10/14/17 23:30 Ur Amphetamines Screen Negative (NEGATIVE) 10/14/17 23:30 U Benzodiazepines Scrn Negative (NEGATIVE) 10/14/17 23:30 U Oth Cocaine Metabols Negative (NEGATIVE) 10/14/17 23:30 U Cannabinoids Screen Negative (NEGATIVE) 10/14/17 23:30 Hepatitis A IgM Ab Negative (NEGATIVE) 10/15/17 05:40 Hep Bs Antigen Negative (NEGATIVE) 10/15/17 05:40 Hep B Core IgM Ab Negative (NEGATIVE) 10/15/17 05:40 Hepatitis C Antibody Reactive (NEGATIVE) 10/15/17 05:40 HIV 1&2 Antibody Screen Reactive (NEGATIVE) 10/15/17 06:30 - Hospital Course Hospital Course: 67 yo M with PMH significant for DM, HTN, HLD, HIV, Hepatitis C who initially presented complaining of abdominal pain of three weeks duration. Patient was a very poor historian and did not recall most of his past medical history, nor any of his medications. He also frequently changed the story of his pain. He did consistently report that his pain was worse immediately before meals, then improved after he would eat. He had CT A/P which was concerning for acute/ chronic cholecystitis, but follow up ultrasound did now show signs of acute cholecystitis. He was started on a PPI and was given Maalox for symptomatic relief, with subsequent improvement of his pain. Patient was given a prescription for a PPI, with instructions to [facility], [facility] well [facility] where he is followed for his diabetes, HIV, and hepatitis C. All questions were answered to the patient's satisfaction, and he was discharged to home. Discharge Exam - Head Exam Head Exam: ATRAUMATIC, NORMAL INSPECTION, NORMOCEPHALIC - Eye Exam Eye Exam: EOMI, Normal appearance - ENT Exam ENT Exam: Mucous Membranes Moist - Neck Exam Neck exam: Normal Inspection - Respiratory Exam Respiratory Exam: Clear to PA & Lateral, NORMAL BREATHING PATTERN - Cardiovascular Exam Cardiovascular Exam: REGULAR RHYTHM, +S1, +S2 - GI/Abdominal Exam GI & Abdominal Exam: Normal Bowel Sounds, Soft, Tenderness (Mild, epigastric, significant reduced since yesterday) - Extremities Exam Extremities exam: normal inspection - Neurological Exam Neurological exam: Alert, Oriented x3 - Psychiatric Exam Psychiatric exam: Normal Affect, Normal Mood - Skin Skin Exam: Dry, Intact, Normal Color Discharge Plan - Discharge Medications Prescriptions: Omeprazole 20 mg PO DAILY #30 tablet.dr - Follow Up Plan Condition: GOOD Disposition: HOME/ ROUTINE Instructions: Cholecystitis (DC), Narcotic Abuse (DC), Hepatitis B (DC), HIV Transmission (DC), HIV Infection (DC), Opioid Dependence (DC) Additional Instructions: CONTINUE OMEPRAZOLE DAILY FOLLOW UP WITH [facility]. SPOKE WITH [facility] WHO WILL CALL YOU FOR FOLLOW UP VISIT. INFORMED CASE MANAGEMENT OF YOUR HOSPITAL COURSE. IF YOU EXPERIENCE ANY RE OCCURRENCE OF SYMPTOMS CONTACT YOUR PRIMARY CARE PHYSICIAN AND GO TO THE NEAREST EMERGENCY ROOM Referrals: PCP,NO [Primary Care Provider] - Follow up with primary <Maximilian Mena - Last Filed: 10/16/17 16:08> Provider - Provider Date of Admission: 10/15/17 01:54 Attending physician: Maximilian Mena MD Primary care physician: NO PRIMARY CARE PROVIDER Hospital Course - Lab Results Lab Results: Micro Results 10/15/17 02:00 Blood Blood Culture - Preliminary NO GROWTH AFTER 24 HOURS Most Recent Lab Values WBC 11.1 10^3/ul (4.5-11.0) H 10/16/17 05:30 RBC 3.86 10^6/uL (3.5-6.1) 10/16/17 05:30 Hgb 12.0 g/dL (14.0-18.0) L 10/16/17 05:30 Hct 35.2 % (42.0-52.0) L 10/16/17 05:30 MCV 91.2 fl (80.0-105.0) 10/16/17 05:30 MCH 31.1 pg (25.0-35.0) 10/16/17 05:30 MCHC 34.1 g/dl (31.0-37.0) 10/16/17 05:30 RDW 13.1 % (11.5-14.5) 10/16/17 05:30 Plt Count 141 10^3/uL (120.0-450.0) 10/16/17 05:30 MPV 12.0 fl (7.0-11.0) H 10/16/17 05:30 Gran % 79.1 % (50.0-68.0) H 10/16/17 05:30 Lymph % (Auto) 13.5 % (22.0-35.0) L 10/16/17 05:30 [place] % (Auto) 7.1 % (1.0-6.0) H 10/16/17 05:30 Eos % (Auto) 0.1 % (1.5-5.0) L 10/16/17 05:30 Baso % (Auto) 0.2 % (0.0-3.0) 10/16/17 05:30 Gran # 8.75 (1.4-6.5) H 10/16/17 05:30 Lymph # 1.5 (1.2-3.4) 10/16/17 05:30 [place] # 0.8 (0.1-0.6) H 10/16/17 05:30 Eos # 0.0 (0.0-0.7) 10/16/17 05:30 Baso # 0.02 K/mm3 (0.0-2.0) 10/16/17 05:30 Sodium 142 mmol/L (132-148) 10/16/17 05:30 Potassium 4.1 mmol/L (3.6-5.0) 10/16/17 05:30 Chloride 108 mmol/L (98-107) H 10/16/17 05:30 Carbon Dioxide 24 mmol/L (21-33) 10/16/17 05:30 Anion Gap 13 (10-20) 10/16/17 05:30 BUN 19 mg/dL (7-21) 10/16/17 05:30 Creatinine 1.5 mg/dl (0.8-1.5) 10/16/17 05:30 Est GFR ( Amer) 57 10/16/17 05:30 Est GFR (Non-Af Amer) 47 10/16/17 05:30 POC Glucose (mg/dL) 208 mg/dL (65-110) H 10/16/17 11:58 Random Glucose 176 mg/dL (70-110) H 10/16/17 05:30 Hemoglobin A1c 8.3 % (4.2-6.5) H 10/15/17 05:40 Calcium 9.3 mg/dL (8.4-10.5) 10/16/17 05:30 Phosphorus 3.5 mg/dL (2.5-4.5) 10/16/17 05:30 Magnesium 1.8 mg/dL (1.7-2.2) 10/16/17 05:30 Total Bilirubin 0.7 mg/dL (0.2-1.3) 10/16/17 05:30 AST 53 U/L (17-59) 10/16/17 05:30 ALT 40 U/L (7-56) 10/16/17 05:30 Alkaline Phosphatase 155 U/L (38-126) H 10/16/17 05:30 Total Protein 8.3 g/dL (5.8-8.3) 10/16/17 05:30 Albumin 3.5 g/dL (3.0-4.8) 10/16/17 05:30 Globulin 4.8 gm/dL 10/16/17 05:30 Albumin/Globulin Ratio 0.7 (1.1-1.8) L 10/16/17 05:30 Triglycerides 48 mg/dL (35-160) 10/15/17 05:40 Cholesterol 107 mg/dL (130-200) L 10/15/17 05:40 LDL Cholesterol Direct 31 mg/dL (0-129) 10/15/17 05:40 HDL Cholesterol 47 mg/dL (29-60) 10/15/17 05:40 Lipase 24 U/L (23-300) 10/15/17 05:40 Urine Color Yellow (YELLOW) 10/14/17 23:30 Urine Appearance Clear (CLEAR) 10/14/17 23:30 Urine pH >=9.0 (4.7-8.0) 10/14/17 23:30 Ur Specific [place] 1.020 (1.005-1.035) 10/14/17 23:30 Urine Protein 100 mg/dL (<30 mg/dL) H 10/14/17 23:30 Urine Glucose (UA) Negative mg/dL (NEGATIVE) 10/14/17 23:30 Urine Ketones Negative mg/dL (NEGATIVE) 10/14/17 23:30 Urine Blood Trace-intact (NEGATIVE) H 10/14/17 23:30 Urine Nitrate Negative (NEGATIVE) 10/14/17 23:30 Urine Bilirubin Negative (NEGATIVE) 10/14/17 23:30 Urine Urobilinogen 2.0 E.U./dL (<1 E.U./dL) H 10/14/17 23:30 Ur Leukocyte Esterase Negative Yudi/uL (NEGATIVE) 10/14/17 23:30 Urine RBC 2 - 5 /hpf (0-2) 10/14/17 23:30 Urine WBC 0 - 2 /hpf (0-6) 10/14/17 23:30 Ur Epithelial Cells 0 - 2 /hpf (0-5) 10/14/17 23:30 Stool Occult Blood Negative (NEGATIVE) 10/15/17 12:00 Urine Opiates Screen Positive (NEGATIVE) H 10/14/17 23:30 Urine Methadone Screen Negative (NEGATIVE) 10/14/17 23:30 Ur Barbiturates Screen Negative (NEGATIVE) 10/14/17 23:30 Ur Phencyclidine Scrn Negative (NEGATIVE) 10/14/17 23:30 Ur Amphetamines Screen Negative (NEGATIVE) 10/14/17 23:30 U Benzodiazepines Scrn Negative (NEGATIVE) 10/14/17 23:30 U Oth Cocaine Metabols Negative (NEGATIVE) 10/14/17 23:30 U Cannabinoids Screen Negative (NEGATIVE) 10/14/17 23:30 Hepatitis A IgM Ab Negative (NEGATIVE) 10/15/17 05:40 Hep Bs Antigen Negative (NEGATIVE) 10/15/17 05:40 Hep B Core IgM Ab Negative (NEGATIVE) 10/15/17 05:40 Hepatitis C Antibody Reactive (NEGATIVE) 10/15/17 05:40 HIV 1&2 Antibody Screen Reactive (NEGATIVE) 10/15/17 06:30 Attending/Attestation - Attestation I have personally seen and examined this patient.: Yes I have fully participated in the care of the patient.: Yes I have reviewed all pertinent clinical information, including history, physical exam and plan: Yes Notes (Text): 10/16/17 16:00 Patient was seen and examined with medical device sales consultant. Agreed with resident assessment and plan. 67 yrs Male with PMH significant for DM, HTN, Hyperlipidemia, HIV, Hepatitis C, HIV , drug abuse non compliance with medication was admitted with abdominal pain , likely due to gastritis/Peptic ulcer disease, improved with PPI.Patient also has gall stone but no evidence cholycystitis.Patient is tolerating food at the time of discharge.Patient will follow up with his PCP Management plan was discussed in detail with patient Education was provided.
--- NOTE | 2017-10-16 16:02 | CP.PCM.PN ---
Subjective - Date & Time of Evaluation Date of Evaluation: 10/16/17 Time of Evaluation: 14:00 - Subjective Subjective: Infectious Disease Follow Up: October 16, 2017 67 yo male with intermittent abdominal pains with nausea and nonbilious vomiting. Patient admits to sniffing cocaine to deal with the pain. Patient has known history of HIV and Hep C seen in the [facility]. The patient has been positive for both since 2012 to my best knowledge (last time I saw the patient). He also has a diabetes and hypertension history as well. Unclear to me whether the patient is compliant with therapy but he does visit the [facility] regularly. He states that his numbers are "good". Unclear if he had received treatment for Hep C at [facility]. Abdominal pain has improved this morning. Objective - Vital Signs/Intake and Output Vital Signs (last 24 hours): Temp Pulse Resp BP Pulse Ox 99.2 F 74 20 149/90 97 10/16/17 06:00 10/16/17 06:00 10/16/17 06:00 10/16/17 06:00 10/16/17 06:00 Intake and Output: 10/16/17 10/16/17 06:59 18:59 Intake Total 720 700 Output Total 800 Balance -80 700 - Labs Labs: 10/16/17 05:30 10/16/17 05:30 - Constitutional Appears: Non-toxic, No Acute Distress, Chronically Ill - Head Exam Head Exam: ATRAUMATIC, NORMOCEPHALIC - Eye Exam Eye Exam: EOMI, PERRL Pupil Exam: NORMAL ACCOMODATION, PERRL - ENT Exam ENT Exam: Mucous Membranes Moist, Normal External Ear Exam, TM's Normal Bilaterally - Neck Exam Neck Exam: Full ROM, Normal Inspection - Respiratory Exam Respiratory Exam: Clear to Ausculation Bilateral, NORMAL BREATHING PATTERN. absent: Rales, Rhonchi, Wheezes - Cardiovascular Exam Cardiovascular Exam: REGULAR RHYTHM, RRR, +S1, +S2 - GI/Abdominal Exam GI & Abdominal Exam: Soft, Normal Bowel Sounds. absent: Tenderness - Extremities Exam Extremities Exam: Full ROM, Normal Inspection - Neurological Exam Neurological Exam: Alert, Awake, CN II-XII Intact, Oriented x3 - Psychiatric Exam Psychiatric exam: Normal Affect, Normal Mood - Skin Skin Exam: Dry, Normal Color Assessment and Plan - Assessment and Plan (Free Text) Assessment: 67 yo AA male with abdominal pain found on CT scan to have multiple gallstones and a contracted gallbladder. NPO for potential surgery. Patient with known history of HIV and Hep C. No need to rescreen for HIV or Hepatitis C. Check CD4, HIV viral load, and Hep C viral load. Contact [facility] in [place] for HAART regimen and treatment status on Hepatitis C. Unclear if patient is compliant but appears to be given the frequency of his visits to [facility]. On Ceftriaxone and Flagyl... could utilize Zosyn or Unasyn as single drug coverage. Await surgery evaluation regarding need for surgery. GERDs? Thank you for allowing me to participate in the care of the patient, we will follow with you.
[2017-10-18 16:36] LABS: % CD4 (T HELPER CELL) 45 Percent (30-61); % CD8 (SUPPRESSOR T CELL) 23 Percent (12-42); ABSOLUTE CD3 CELLS 1006 Cells/mcL (840-3060); ABSOLUTE CD4 CELLS 660 Cells/mcL (490-1740); ABSOLUTE CD8 CELLS 336 Cells/mcL (180-1170); ABSOLUTE LYMPHOCYTES 1473 Cells/mcL (850-3900); HELPER/SUPPRESSOR RATIO 1.97 Ratio (0.86-5.00)
== END 2017-10-16 15:14 | disposition home or self-care (01) ==
LOC: ED 20:24 → ERH 10-15 01:54 → INTOOBSV 10-15 01:54 → ERH 10-15 02:15 → 3RNO 10-15 03:17
PROVIDERS: ADMIT Internal Medicine; ATTEND Internal Medicine
DX: K80.12 Calculus of gallbladder with acute and chronic cholecystitis without obstruction (principal); I10 Essential (primary) hypertension; E11.9 Type 2 diabetes mellitus without complications; N17.9 Acute kidney failure, unspecified; E86.0 Dehydration; D64.9 Anemia, unspecified; F11.10 Opioid abuse, uncomplicated; B19.20 Unspecified viral hepatitis C without hepatic coma; Z91.14 Patient's other noncompliance with medication regimen; E78.5 Hyperlipidemia, unspecified; B20 Human immunodeficiency virus [HIV] disease; K29.70 Gastritis, unspecified, without bleeding; F17.200 Nicotine dependence, unspecified, uncomplicated
CPT/HCPCS: 36415; 71010; 74177; 76700; 80053; 80061; 80074; 81001; 81003; 82948; 83036; 83690; 83735; 84100; 85025; 85027; 86359; 86360; 87040; 87389; 87521; 87536; 93005; 96365; 96366; 96367; 96372; 96375; 96376; 99285; A9579; G0328; G0378; G0480; J0696; J1644; J1885; J2405; J7040; J7042